=== PATIENT | female | born 1960 | race Caucasian/White ===

== ENCOUNTER 2017-02-15 10:22 | Emergency (ER) | payer BC ==
[2015-03-31 19:26] VITALS: BMI 33.9
[~2017-02-15 10:22] MED LIST: ADVAIR 250/501 DISK INH; ALBUTEROL1.25 MG/3 INH; ATIVAN1 MG PO; BENADRYL50 MG PO; CIPRO500 MG PO; CLARITIN 10 MG10 MG PO; FLOVENT DISKU250 MCG INH; FLUTICASONE PRO16 GM NASAL; NAPROSYN500 MG PO; OMNICEF300 MG PO; PERCOCET 5-3251 TAB PO; PREDNISONE20 MG PO; PRILOSEC20 MG PO; PROTONIX40 MG PO; PULMICORT180 MCG/AE INH; SINGULAIR10 MG PO; STERAPRED 5MG 65 M1 PO; TESSALON PERLE100 MG PO; VENTOLIN HFA18 GM INH
[2017-02-15 13:21] LABS: BASOPHILS 0.6 % (0.0-2.0); EOSINOPHILS 5.3 % (0-7); HEMATOCRIT 46.3 % (36.0-48.0); HEMOGLOBIN 15.2 g/dL (12-16); IMMATURE GRANULOCYTES 0.2 % (0-5); LYMPHOCYTES 13.8 % (15-50); MCH 29.6 pg (26.0-34.0); MCHC 32.8 g/dL (31.0-37.0); MCV 90.3 fL (80.0-100.0); MEAN PLATELET VOLUME 10.5 fL (7.4-10.4); MONOCYTES 3.7 % (2-11); NEUTROPHILS 76.4 % (40-80); PLATELET COUNT 273 10x3/uL (130-400); RBC 5.13 10x6/uL (4.00-5.40); RDW 13.2 % (11.5-14.5); WBC 9.6 10x3/uL (4.8-10.8)
[2017-02-15 13:41] LABS: ALKALINE PHOSPHATASE 94 U/L (46-116); ALT (SGPT) 19 U/L (10-68); BILIRUBIN - TOTAL 0.52 mg/dL (0.2-1.3); CALC OSMOLALITY 281 mosm/kg (275-300); CARBON DIOXIDE 26.9 mmol/L (21.0-32.0); CHLORIDE - SERUM 104 mmol/L (98-107); CREATININE - SERUM 0.8 mg/dL (0.6-1.3); GLUCOSE 101 mg/dL (74-106); POTASSIUM - SERUM 3.7 mmol/L (3.5-5.1); PROTEIN - SERUM 7.8 g/dL (6.4-8.2); SODIUM 142 mmol/L (136-145); UREA NITROGEN 11 mg/dL (7-18); eGFR NON AFRICAN AMERICAN 79 mL/min (90-120)
== END 2017-02-15 14:41 | disposition home or self-care (01) ==
LOC: D.ER 10:22
PROVIDERS: Nurse Practitioner Family
DX: J45.901 Unspecified asthma with (acute) exacerbation (principal); J06.9 Acute upper respiratory infection, unspecified; I10 Essential (primary) hypertension; E78.5 Hyperlipidemia, unspecified

== ENCOUNTER → 2017-12-05 09:26 | Outpatient (CLI) | payer OTHER, BC ==
[2015-03-31 19:26] VITALS: BMI 33.9
== END | disposition home or self-care (01) ==
LOC: D.RT 09-11 13:00 → D.RAD 09-11 14:00 → D.RT 09:26
DX: J45.909 Unspecified asthma, uncomplicated (principal)

== ENCOUNTER → 2017-12-31 08:35 | Outpatient (CLI) | payer OTHER, BC ==
[2015-03-31 19:26] VITALS: BMI 33.9
--- NOTE | ~2017-12-31 | EC ---
PATIENT:TERRENCE BLAKE DATE OF SERVICE: 12/31/17 SEX: F MEDICAL RECORD: [id number] DATE OF : 62 LOCATION:D.PENDING SALE TO [facility] AGE OF PATIENT: 57 ADMISSION DATE: 12/31/17 REFERRING PHYSICIAN: INTERPRETING PHYSICIAN: JUNE MCCLENDON MD ECHOCARDIOGRAM REPORT ECHO CHARGES 4 ECHO COMPLETE CLINICAL DIAGNOSIS: PALPITATIONS,CHEST PAIN,DYSPNEA ECHOCARDIOGRAPHIC MEASUREMENTS (adult normal given) AC root (d.<3.7cm) 3.7 cm LV Septum d (<1.2 cm> 1.5 cm Valve Excursion 1.6 cm LV Septum (systole) 1.7 cm Left Atria (s.<4.0cm> 3.7 cm LVPW d(<1.2cm) 1.5 cm RV (d.<2.3cm) 3.5 cm LVPW (sytole) 1.6 cm LV diastole(<5.6CM) 4.9 cm MV E-F(>70mm/sec) cm LV systole 3.7 cm LVOT Diameter 1.6 cm MV exc.(>10mm) 1.4 cm Est.ejection fraction (50-75%) % Pericardial Effusion N DOPPLER: LVIT cm/sec A 100 cm/sec E 89.0 cm/sec LA cm/sec RVSP 20 mmHg LVOT 105 cm/sec AOP1/2T m/s Asc. Ao 140 cm/sec RVOT 77 cm/sec RA cm/sec PA 124 cm/sec AV Gradient Peak 7.89 mmHg AV Mean 4.17 mmHg AV Area 1.8 cm MV Gradient Peak 4.37 mmHg MV Mean 1.94 mmHg MV Area cm COMMENTS: Manager Procurement: Shasta GOMES Computer Hardware Engineer: 4 Dr. Mcclendon TAPE# PACS DATE OF SERVICE: 12/31/2017 PROCEDURE: Transthoracic echocardiogram. FINDINGS: 1. Left ventricle has mild concentric left ventricular hypertrophy with inflow characteristics consistent with diastolic dysfunction, ejection fraction of 65%. 2. The left atrium is normal size, normal function. 3. The aortic valve is normal. 4. The mitral valve has trace mitral regurgitation, otherwise normal function. ECHOCARDIOGRAM REPORT [id number] TERRENCE BLAKE 5. The tricuspid valve has trace tricuspid regurgitation, otherwise normal function. RVSP is normal. Pulmonic valve is normal. The right atrium and the right ventricle are mildly dilated, but otherwise normal function. IMPRESSION: The patient has evidence of mild hypertensive heart disease, otherwise normal echocardiogram. TRANSINT:[id number] Voice Confirmation ID: [id number] DOCUMENT ID: [id number] JUNE MCCLENDON MD CC: [id number] DICTATION DATE: 01/01/1829 DECORATOR MANNEQUIN: 01/01/18 1118 DEP CLI 12/31/[address] [id number]
== END | disposition home or self-care (01) ==
LOC: D.ECHO 08:35
DX: R07.9 Chest pain, unspecified (principal); R00.2 Palpitations; R06.02 Shortness of breath

== ENCOUNTER → 2019-11-17 07:36 | Outpatient (CLI) | payer OTHER, BC ==
[2015-03-31 19:26] VITALS: BMI 33.9
== END | disposition home or self-care (01) ==
LOC: D.RT 07:36
PROVIDERS: ATTEND Internal Medicine Pulmonary Disease
DX: J45.909 Unspecified asthma, uncomplicated (principal)